=== PATIENT | female | born 1960 | race Caucasian/White ===

== ENCOUNTER 2022-08-31 11:22 | Inpatient (IN) ==
[2022-08-31] MEDS ORDERED: Al Hydrox/Mg Hydrox/Simet LIQ 30 ML UDC PO PRN (16:02)
[2022-08-31 16:20] LABS: ABS Eosinophils 0.1 10^3/ul (0-0.6); ABS Lymphocytes 2.1 10^3/ul (1.0-4.8); ABS Monocytes 0.6 10^3/ul (0-0.8); ABS Neutrophils 3.8 10^3/ul (1.5-7.7); Eosinophil % 1.1 %; Hematocrit 39 % (35-47); Hemoglobin 12.8 g/dL (12.0-16.0); Lymphocyte % 32.1 %; Mean Corpuscular Hemoglobin 31 pg (27-31); Mean Corpuscular Hgb Conc 33 g/dL (31-36); Mean Corpuscular Volume 93 fL (80-97); Mean Platelet Volume 8.8 fL (7.4-10.4); Nucleated Red Blood Cells % 0.1; Platelet Count 280 10^3/uL (150-450); Red Blood Count 4.16 10^6 /uL (3.70-4.87); Red Cell Distribution Width 13 % (10-15); White Blood Count 6.7 10^3/uL (3.5-10.8)
[2022-08-31 16:57] LABS: TSH Ultra Thyroid Stim Horm 2.51 mcIU/mL (0.34-5.60)
[2022-08-31 16:58] LABS: Free T3 2.9 pg/mL (2.5-3.9)
[2022-08-31 17:02] LABS: Free T4 0.8 ng/dL (0.61-1.12)
[2022-08-31 17:05] LABS: Albumin 4.4 g/dL (3.2-5.2); Albumin/Globulin Ratio 1.8 (1-3); Calcium 9.7 mg/dL (8.6-10.3); Creatinine, Serum 0.71 mg/dL (0.51-0.95); Globulin 2.5 g/dL (2-4); Potassium 3.9 mmol/L (3.5-5.0); Total Bilirubin 0.3 mg/dL (0.2-1.0); Total Protein 6.9 g/dL (6.4-8.9); eGFR CKD-EPI 97.3 (>60)
[2022-08-31] MEDS: Gemfibrozil 600 mg PO SCH (21:18)
[2022-08-31] MEDS: Calcium/Vitamin D TAB 250/125 TAB PO SCH (21:18)
[2022-09-01] MEDS: Gemfibrozil 600 mg PO SCH ×2 (07:42→20:59)
[2022-09-01] MEDS: Calcium/Vitamin D TAB 250/125 TAB PO SCH ×2 (07:42→20:58)
[2022-09-01 08:22] LABS: HDL Cholesterol 80.5 mg/dL
[2022-09-02] MEDS: Gemfibrozil 600 mg PO SCH ×3 (09:01→20:48)
[2022-09-02] MEDS: Calcium/Vitamin D TAB 250/125 TAB PO SCH ×2 (09:01→20:50)
[2022-09-03] MEDS: Calcium/Vitamin D TAB 250/125 TAB PO SCH ×2 (09:38→22:11)
[2022-09-03] MEDS: Gemfibrozil 600 mg PO SCH ×2 (09:39→22:11)
[2022-09-04] MEDS: Calcium/Vitamin D TAB 250/125 TAB PO SCH ×2 (08:57→20:09)
[2022-09-04] MEDS: Gemfibrozil 600 mg PO SCH ×2 (09:01→20:09)
[2022-09-05] MEDS: Calcium/Vitamin D TAB 250/125 TAB PO SCH (09:03)
[2022-09-05] MEDS: Gemfibrozil 600 mg PO SCH (09:03)
[2022-09-05 11:25] VITALS: BP 114/68
== END 2022-09-05 10:45 | disposition home or self-care (01) | DRG 750 ==
LOC: ED 11:22 → EDHOLD 16:02 → BSU 17:11
PROVIDERS: ADMIT Psychiatry & Neurology Psychiatry; ATTEND Psychiatry & Neurology Psychiatry